=== PATIENT | female | born 1955 | race Asian ===

== ENCOUNTER → 2018-01-22 09:03 | Emergency (ER) | payer SELFPAY ==
[~2018-01-22 09:03] MED LIST: Acetaminophen TAB* 325 MG PO ONE
--- NOTE | 2018-01-22 14:25 | ED ---
Adult Trauma - HPI Summary HPI Summary: Patient presents with face, head and neck pain since fall yesterday at 11 AM. She reports she was walking out of the [facility] subway when she tripped and fell over uneven sidewalk. Her hands were busy so she was unable to catch herself and landed on her face. She has central upper lip swelling and dental soreness of her front 2 teeth but no laxity or bleeding from her mouth or nose. Additionally, she denies loss of consciousness. She does have a headache and pain over the forehead. Has mildly blurred vision from [place]. Denies photophobia, loss of vision, pain with eye movements, difficulty depressing her elevating her jaw/clicking/popping/pain. Still able to chew/eat w/o difficulty. She does have posterior neck pain without radicular symptoms. Denies numbness, tingling , weakness into her upper or lower extremities. She denies chest pain, abdominal pain, back pain. She did land on her left knee and has a bruise there with some mild swelling. She still able to ambulate without difficulty and has full range of motion. She took Tylenol last night with some relief. She is here today with concerns about her face head and neck injuries. Note: [place] from [place]. Requesting paperwork be completed prior to departure. - History of Current Complaint Chief Complaint: EDHeadInjury Stated Complaint: FELL Time Seen by Provider: 01/22/18 12:37 Hx Obtained From: Patient, Family/Scow Hand - daughter Pain Intensity: 5 - Allergy/Home Medications Allergies/Adverse Reactions: Allergies Allergy/AdvReac Type Severity Reaction Status Date / Time No Known Allergies Allergy Verified 01/22/18 09:12 PMH/Surg Hx/FS Hx/Imm Hx Previously Healthy: Yes Endocrine/Hematology History: Denies: Hx Anticoagulant Therapy, Hx Blood Disorders Infectious Disease History: No Infectious Disease History: Reports: Traveled Outside the [place] in Last 30 Days - returned from [facility] 01/21 - Social History Lives: With Family - visiting from out of country for 1 month Alcohol Use: None Hx Substance Use: No Substance Use Type: Reports: None Hx Tobacco Use: No Smoking Status (MU): Never Smoked Tobacco Review of Systems Constitutional: Negative Negative: Fever, Chills, Fatigue Positive: Blurred Vision. Negative: Photophobia, Diplopia Positive: Dental Pain. Negative: Epistaxis, Sore Throat, Ear Ache, Nasal Discharge Cardiovascular: Negative Respiratory: Negative Gastrointestinal: Negative Positive: no symptoms reported Positive: Arthralgia Positive: Bruising Positive: Headache. Negative: Weakness, Paresthesia, Numbness, Syncope, Slurred Speech Psychological: Normal All Other Systems Reviewed And Are Negative: Yes Physical Exam Triage Information Reviewed: Yes Vital Signs On Initial Exam: Initial Vitals Temp Pulse Resp BP Pulse Ox 98.8 F 74 16 141/91 96 01/22/18 09:09 01/22/18 09:09 01/22/18 09:09 01/22/18 09:09 01/22/18 09:09 Vital Signs Reviewed: Yes Appearance: Positive: Well-Appearing, Well-Nourished, Pain Distress - mild Skin: Positive: Warm, Skin Color Reflects Adequate Perfusion, Dry - upper lip edematous w/o skin breakdown; no other hematomas/facial skin injuries; Lt anterior knee w/ mild edema and ecchymosis - no skin breakdown Head/Face: Positive: Normal Head/Face Inspection - no step off, no battlesign, no racoon eyes. Negative: TMJ Tenderness Eyes: Positive: Normal, EOMI - no pain w/ movement - no periorbital deformity, MEERA, Conjunctiva Clear. Negative: Conjunctiva Inflammed, Discharge ENT: Positive: Normal ENT inspection, Hearing grossly normal, Pharynx normal - inner upper lip w/ healing abrasion - gingiva w/o ecchymosis - no other areas of trauma observed, TMs normal, Uvula midline. Negative: Nasal drainage, Trismus, Muffled voice, Hoarse voice, Sinus tenderness Neck: Positive: Supple, Other: - mild paraspinal cervical mm TTP, hypertonic - no limitation with ROM Respiratory/Lung Sounds: Positive: Breath Sounds Present. Negative: Tracheal Deviation Cardiovascular: Positive: Normal, Pulses are Symmetrical in both Upper and Lower Extremities. Negative: Leg Edema Left, Leg Edema Right Abdomen Description: Positive: Nontender, No Organomegaly, Soft Musculoskeletal: Positive: Normal, Strength/ROM Intact Neurological: Positive: Normal, Sensory/Motor Intact, Alert, Oriented to Person Place, Time, CN Intact II-III, Facial Symmetry, Speech Normal Psychiatric: Positive: Normal - Raisa Coma Scale Best Eye Response: 4 - Spontaneous Best Motor Response: 6 - Obeys Commands Best Verbal Response: 5 - Oriented Coma Scale Total: 15 Diagnostics - Vital Signs Vital Signs Temp Pulse Resp BP Pulse Ox 01/22/18 09:09 98.8 F 74 16 141/91 96 - Laboratory Lab Statement: Any lab studies that have been ordered have been reviewed, and results considered in the medical decision making process. Adult Trauma Course/Dx - Course Course Of Treatment: CT brain : no acute findings. CT cervical spine: no acute findings but has multi level DDD. CT maxilofacial: small bone fragment at Lt mandibular condyel - age indeterminate - explained this could be new or old but w/o tenderness here and no functional limitations will d/c w/ f/u outpt maxilofacial surgery and danger s/sx reviewed w/ pt and daughter. - Diagnoses Provider Diagnoses: Fall from standing, Contusion, lip, Contusion of left knee, Cervical strain, acute, Concussion, Mandibular fracture, closed Discharge - Sign-Out/Discharge Documenting (check all that apply): Patient Departure - Discharge Plan Condition: Stable Disposition: HOME Patient Education Materials: Concussion (ED), Facial Contusion (ED), Contusion in Adults (ED), Cervical Strain (ED), Jaw Fracture in Adults (ED) Referrals: [facility] [Outside] Additional Instructions: You have sustained multiple injuries as a result of your fall. Please see educational handouts for advice on how to manage. If danger signs or symptoms present, return to the emergency department. In the meantime, you may follow up at [facility] (contact information provided here) or [facility] Address: [id number] [place] [address] *If your dental pain worsens or you develop loosening of teeth, follow-up with dentist *If your neck pain persists, you may benefit from physical therapy. Your PCP may refer you or you may make an appointment on your own. [facility] Address: [address] [place] [address] Additionally, you may try these tips below: Rest both physically and cognitively for 48 hours - avoid screens (ie. TV, computer, phone, etc), focusing (ie. reading, holding lengthy or in depth conversation), exertion (ie. carrying heavy objects, going upstairs/hills, jogging, etc) and stimulants (ie. caffeine such as chocolate, coffee, tea, soda , alcohol, etc). Stay hydrated and well nourished Follow-up with PCP in 2-3 days for recheck of symptoms. Call tomorrow to schedule an appointment. *If you develop change in vision, vomiting, dizziness, numbness, weakness, syncope or slurred speech, return to ED - Billing Disposition and Condition Condition: STABLE Disposition: Home
[2018-01-22 19:01] VITALS: BP 135/65
== END | disposition home or self-care (01) ==
LOC: ED 09:03
DX: S06.0X9A Concussion with loss of consciousness of unspecified duration, initial encounter (principal); S00.531A Contusion of lip, initial encounter; S80.02XA Contusion of left knee, initial encounter; S16.1XXA Strain of muscle, fascia and tendon at neck level, initial encounter; S02.609A Fracture of mandible, unspecified, initial encounter for closed fracture; W01.0XXA Fall on same level from slipping, tripping and stumbling without subsequent striking against object, initial encounter; Y92.816 Subway car as the place of occurrence of the external cause
CPT/HCPCS: 70450; 70486; 72125; 99282; A9270-GY